=== PATIENT | female | born 1945 | race Caucasian/White ===

== ENCOUNTER 2023-07-12 11:43 | Emergency (ER) | payer MEDICARE ==
[2023-07-12 13:26] LABS: BILIRUBIN,URINE NEGATIVE (NEGATIVE); COLOR,URINE YELLOW; GLUCOSE,URINE NEGATIVE (NEGATIVE); KETONES,URINE NEGATIVE (NEGATIVE); LEUKOCYTE ESTERASE,URINE TRACE (NEGATIVE); NITRITE,URINE NEGATIVE (NEGATIVE); OCCULT BLOOD,URINE TRACE-LYSED (NEGATIVE); PH,URINE 6.5 (5.0-8.0); PROTEIN,URINE NEGATIVE (NEGATIVE); UROBILINOGEN,URINE 0.2 E.U./dL (0.2-1.0)
[2023-07-12 13:33] LABS: APPEARANCE,URINE CLOUDY (CLEAR)
== END 2023-07-12 15:40 | disposition home or self-care (01) ==
LOC: LB.ED 11:43
DX: N39.0 Urinary tract infection, site not specified (principal); M25.551 Pain in right hip; G30.9 Alzheimer's disease, unspecified; Z79.899 Other long term (current) drug therapy; Z86.19 Personal history of other infectious and parasitic diseases
CPT/HCPCS: 73502-RT; 74176; 81001; 99284